=== PATIENT | female | born 1985 | race Hispanic/Latino ===

== ENCOUNTER 2017-09-30 00:35 | Emergency (ER) | payer BC ==
[2017-09-30 01:04] VITALS: BMI 21.7
[2017-09-30 01:09] VITALS: BP 115/75; PULSE 81; RESP 16; TEMP 98; O2SAT 99
[2017-09-30] MEDS ORDERED: Sodium Chloride 0.9% 1,000 ML IV STA (01:14)
--- NOTE | 2017-09-30 01:18 | ED PDOC ---
HPI: Headache Time Seen by Provider: 09/30/17 00:45 Chief Complaint (Nursing): Headache History Per: Patient Associated Symptoms: Nausea. denies: Vomiting, Extremity Weakness Additional Complaint(s): Pt. states at approximately 2300 she developed a gradual onset frontal headache. Headache is localized to the frontal area and is described as a "vice director" sensation. States headache has progressively worsened and is associated with nausea but no vomiting. She took Tylenol DOPEMAN without relief. Further states yesterday afternoon she was playing soccer and was struck in the face with a kicked soccer ball. Reports no headache after getting struck. Denies LOC , fever, weakness, visual changes, anticoagulant use, previous TBI, light sensitivity, neck pain or stiffness. Admits to drinking beer tonight. - Risk Factors SAH Risk Factors: Nest Degree Relative(s) W/SAH, Sudden Onset Of Pain Past Medical History Reviewed: Historical Data, Nursing Documentation, Vital Signs Vital Signs: Last Vital Signs Temp 98.0 F 09/30/17 01:04 Pulse 81 09/30/17 01:04 Resp 16 09/30/17 01:04 BP 115/75 09/30/17 01:04 Pulse Ox 99 09/30/17 01:04 - Surgical History Surgical History: No Surg Hx - Family History Family History: States: No Known Family Hx - Home Medications Home Medications: Ambulatory Orders Medication Instructions Recorded Metoclopramide [Reglan] 10 mg PO TID PRN #10 tab 09/30/17 Naproxen [Naprosyn] 500 mg PO BID PRN #10 tab 09/30/17 - Allergies Allergies/Adverse Reactions: Allergies Allergy/AdvReac Type Severity Reaction Status Date / Time No Known Allergies Allergy Verified 09/30/17 01:04 Review of Systems ROS Statement: Except As Marked, All Systems Reviewed And Found Negative Gastrointestinal: Positive for: Nausea Neurological: Positive for: Headache Physical Exam - Physical Exam Appears: Positive for: Well, Non-toxic, No Acute Distress Head Exam: Positive for: ATRAUMATIC, NORMAL INSPECTION, NORMOCEPHALIC Skin: Positive for: Normal Color, Warm. Negative for: Rash Eye Exam: Positive for: Normal appearance, EOMI, PERRL. Negative for: Nystagmus , Periorbital swelling, Periorbital tenderness ENT: Positive for: Normal ENT Inspection Neck: Positive for: Normal, Painless ROM Cardiovascular/Chest: Positive for: Regular Rate, Rhythm Respiratory: Positive for: CNT, Normal Breath Sounds Gastrointestinal/Abdominal: Positive for: Normal Exam, Soft. Negative for: Tenderness Extremity: Positive for: Normal ROM, Other (equal director strenght b/l) Neurologic/Psych: Positive for: Alert, Oriented. Negative for: Aphasia, Facial Droop - Laboratory Results Result Diagrams: 09/30/17 02:02 09/30/17 02:02 - ECG O2 Sat by Pulse Oximetry: 99 - Progress ED Course And Treament: Labs, CT head w/o contrast, imitrex 6mg SC, zofran 4mg ODT, IV NS bolus x [address] head w/o contrast: No evidence of an acute intracranial hemorrhage, midline shift or mass effect is identified. 0300 On re-evaluation, pt. found sleeping comfortably. Easily arousable. Reports good relief of headache. Informed of results. Agrees with plan and care. Advised to f/u with Dr. Leal, neuro, for further evaluation but is to return to ED immediately if symptoms worsen. Disposition - Clinical Impression Clinical Impression: Acute headache - Disposition Referrals: Johnson Leal MD [Medical Doctor] - [facility] [Outside] Disposition: Routine/Home Disposition Time: 03:14 Condition: IMPROVED Additional Instructions: Follow up with Dr. Leal, neurologist, for further evaluation. Return to ED immediately if symptoms worsen. Prescriptions: Metoclopramide [Reglan] 10 mg PO TID PRN #10 tab PRN Reason: headache or nausea Naproxen [Naprosyn] 500 mg PO BID PRN #10 tab PRN Reason: headache or pain Instructions: Acute Headache (ED) Forms: [facility] (French) Print Language: NEPALI
[2017-09-30 02:28] LABS: BASO % 0.9 % (0.0-2.0); EOS # 0.2 K/uL (0.0-0.7); EOS % 3.1 % (0.0-4.0); HEMOGLOBIN 12.8 g/dL (12.0-16.0); LYMPH # 2.4 K/uL (1.0-4.3); LYMPH % 48.2 % (20.0-40.0); MEAN CORPUSCULAR HEMOGLOBIN 30.8 pg (27.0-31.0); MEAN PLATELET VOLUME 10.1 fl (7.2-11.7); MONO # 0.3 K/uL (0.0-0.8); MONO % 6.1 % (0.0-10.0); NEUT # 2.1 K/uL (1.8-7.0); NEUT % 41.7 % (50.0-75.0); NRBC % 0.1 % (0.0-0.0); RBC 4.16 Mil/uL (3.80-5.20); RED CELL DISTRIBUTION WIDTH 12.7 % (11.5-14.5)
[2017-09-30 02:44] LABS: ALBUMIN 3.5 g/dL (3.5-5.0); ALT/SGPT 37 U/L (9-52); AST/SGOT 37 U/L (14-36); BLOOD UREA NITROGEN 13 mg/dl (7-17); CALCIUM 8.7 mg/dL (8.4-10.2); GFR AFRICAN-AMERICAN > 60; GFR NON-AFRICAN AMERICAN > 60
[2017-09-30 02:53] LABS: BARBITURATES, UR NEGATIVE (NEGATIVE); BENZODIAZEPINES, UR NEGATIVE (NEGATIVE); OPIATES, UR NEGATIVE (NEGATIVE); PHENCYCLIDINE, UR NEGATIVE (NEGATIVE)
--- NOTE | 2017-09-30 02:53 | CT ---
EXAM: CT Head Without Intravenous Contrast CLINICAL HISTORY: 32 years old, female; Pain; Headache; Headache not specified; Patient HX: At 2300 she developed a gradual onset headache TECHNIQUE: Axial computed tomography images of the head/brain without intravenous contrast. All CT scans at this facility use one or more dose reduction techniques, viz.: automated exposure control; ma/kV adjustment per patient size (including targeted exams where dose is matched to indication; i.e. head); or iterative reconstruction technique. 283 images are submitted. Coronal and sagittal reformatted images were created and reviewed. COMPARISON: No relevant prior studies available. FINDINGS: Brain: Unremarkable. No hemorrhage. No significant white matter disease. No edema. Ventricles: Unremarkable. No ventriculomegaly. Bones/joints: Unremarkable. No acute fracture. Soft tissues: Unremarkable. Sinuses: Patchy left ethmoid sinus disease. Mastoid air cells: Unremarkable. No mastoid effusion. IMPRESSION: No evidence of an acute intracranial hemorrhage, midline shift or mass effect is identified.
== END 2017-09-30 03:43 | disposition home or self-care (01) ==
LOC: H.ER 00:35
DX: R51 Headache (principal); W21.02XA Struck by soccer ball, initial encounter
CPT/HCPCS: 70450; 80053; 81025; 85025; 96360; 96372; 99283; G0480; J3030; J7040